=== PATIENT | male | born 1995 | race Caucasian/White ===

== ENCOUNTER 2019-01-07 15:03 | Outpatient (CLI) | payer OTHER ==
--- NOTE | 2019-01-07 16:21 | ULT ---
Soft tissue ultrasound of the left foot INDICATION: Stepped on a foreign body concern for retained foreign body FINDINGS: There is soft tissue edema in the region of interest near the left foot arch. There is a lo bulated hypoechoic structure seen deep to this region of subcutaneous edema and overlying the intrinsic foot musculature. This may be within the region of the plantar band. This can be related to scar tissue or small fluid collection in the base of the foot. This measures 1.8 x 0.6 cm. IMPRESSION: 1.8 x 0.6 cm lobulated hypoechoic collection in the region of interest may reflect a smal l focal fluid collection such as an abscess; however, hematoma cannot be entirely excluded. Soft tissue prominence of the plantar fascia in this region from fibromatosis or scar could have a similar appearance. Recommend further evaluation with an MRI of the left foot with and without contrast.
== END 2019-01-07 15:04 | disposition home or self-care (01) ==
LOC: SCSULT 15:03
PROVIDERS: ATTEND Podiatrist
DX: M79.672 Pain in left foot (principal); M79.5 Residual foreign body in soft tissue
CPT/HCPCS: 76999